=== PATIENT | female | born 1990 | race Hispanic/Latino ===

== ENCOUNTER 2018-06-13 12:20 | Emergency (ER) | payer OTHER, SELFPAY ==
[2018-06-13 12:34] VITALS: BP 126/83; PULSE 78; RESP 18; TEMP 36.9; O2SAT 100; BMI 23.8
[2018-06-13 12:37] VITALS: PULSE 78
--- NOTE | 2018-06-13 12:45 | DI.RAD.S_ITS ---
PROCEDURE: XR FINGER RT MIN 2V INDICATIONS: pain, popping TECHNIQUE: AP hand, 2 views of the 1st digit acquired. COMPARISON: None. FINDINGS: Bones: No fractures or dislocations. No suspicious bony lesions. Soft tissues: No suspicious soft tissue calcifications. IMPRESSION: 1. No fracture or dislocation. Dictated by: Eros Garibay M.D. on 06/13/2018 at 13:09 Approved by: Eros Garibay M.D. on 06/13/2018 at 13:12
--- NOTE | 2018-06-13 12:47 | ED.EXTPRO ---
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 She states she has never hurt her right thumb before. She is right-hand dominant. She was working, building furniture and felt a pop in her right thumb and subsequently complains of decreased range of motion. She had some swelling yesterday, so she put ice on it which improved the swelling. She has not taken any Tylenol or ibuprofen for the pain. she states this happened yesterday. She denies any numbness or tingling. She states pain with movement, especially with abduction and adduction. She states she can flex and extend her thumb. Denies any other injury. Related Data Home Medications Medication Instructions Recorded Confirmed bupropion HCl 150 mg PO QPM 06/13/18 06/13/18 insulin lispro [Humalog U-100 1 dose CONTINUOUS SUBCUTANEOUS 06/13/18 06/13/18 Insulin] INFUSION DAILY lamotrigine 25 mg PO QPM 06/13/18 06/13/18 Allergies Allergy/AdvReac Type Severity Reaction Status Date / Time No Known Drug Allergies Allergy Verified 06/13/18 12:37 Review of Systems <BILLIE Wan- - Last Filed: 06/13/18 15:02> Review of Systems GENERAL: Denies chills, fatigue, malaise, fever, sweats. HEENT: Denies sinus pain, ear pain, sore throat, difficulty swallowing, dizziness. RESPIRATORY: Denies dyspnea, cough, wheezing, hemoptysis, sputum. CARDIOVASCULAR: Denies chest pain, palpitations, orthopnea, edema, GASTROINTESTINAL: Denies nausea, vomiting, abdominal pain, diarrhea, constipation, melena. : Denies dysuria, frequency, incontinence, hematuria, urinary retention. MUSCULOSKELETAL: See HPI SKIN: See HPI NEUROLOGIC: Denies weakness, headache, numbness, change in speech, confusion, seizures, incoordination. PSYCHIATRIC: No concerning psychosocial issues. 12 point review of systems is negative except for those stated above PFSH <SAMMI Wan - Last Filed: 06/13/18 15:02> Social History Smoking Status: Never smoker Social History Smoking Status: Never smoker Exam <SAMMI Wan - Last Filed: 06/13/18 15:02> Narrative Exam Narrative: GENERAL: This is a well-nourished, well-developed patient, no acute distress HEAD: Atraumatic. Normocephalic. No temporal or scalp tenderness. EYES: Pupils equal round and reactive. Extraocular motions intact. No scleral icterus. No injection or drainage. ENT: Nose without bleeding, purulent drainage or septal hematoma. Throat without erythema, tonsillar hypertrophy or exudate. Uvula midline. Airway patent. NECK: Trachea midline. No JVD or lymphadenopathy. Supple, nontender, no meningeal signs. CARDIOVASCULAR: Regular rate and rhythm EXTREMITIES: Generalized pain to palpation right thumb. Patient is able to flex and extend right thumb. Reduced abduction and adduction noted. Capillary refill less than 2 seconds right thumb. Radial pulse intact right hand. BACK: Nontender without deformity or crepitance. No flank tenderness. NEURO: AOx3. SKIN: No erythema. Slight ecchymosis noted base of right 1st digit. Initial Vital Signs Initial Vital Signs: Vital Signs Temperature 98.5 F 06/13/18 12:34 Pulse Rate 78 06/13/18 12:34 Respiratory Rate 18 06/13/18 12:34 Blood Pressure 126/83 06/13/18 12:34 Pulse Oximetry 100 06/13/18 12:34 <Denia Richmond DO - Last Filed: 06/13/18 19:05> Initial Vital Signs Initial Vital Signs: Vital Signs Temperature 98.5 F 06/13/18 12:34 Pulse Rate 78 06/13/18 12:34 Respiratory Rate 18 06/13/18 12:34 Blood Pressure 126/83 06/13/18 12:34 Pulse Oximetry 100 06/13/18 12:34 Course <SAMMI Wan - Last Filed: 06/13/18 15:02> Orders Ordered: ED Orders 06/13/18 12:45 XR finger RT min 2V Stat Vital Signs - 8 hr 06/13/18 12:34 06/13/18 12:37 Temperature 98.5 F Pulse Rate 78 Pulse Rate [Right Radial] 78 Respiratory Rate 18 Blood Pressure 126/83 Pulse Oximetry 100 <Denia Richmond DO - Last Filed: 06/13/18 19:05> Orders Ordered: ED Orders 06/13/18 12:45 XR finger RT min 2V Stat Vital Signs - 8 hr 06/13/18 12:34 06/13/18 12:37 Temperature 98.5 F Pulse Rate 78 Pulse Rate [Right Radial] 78 Respiratory Rate 18 Blood Pressure 126/83 Pulse Oximetry 100 [facility] - Extremity (Nontraumatic) <SAMMI Wan - Last Filed: 06/13/18 15:02> Imaging Data Thumb x-ray: Radiologist's impression: [address] [address] XRay Report Signed Patient: Georgia Fernández TMR#: [id number] : 1990Acct:[id number] Age/Sex: 28 / FDate of Service: 06/13/18 Loc: ED Accession Number: [id number] Procedure: XR finger RT min 2V Ordering Provider: Denia Campbell PROCEDURE: XR FINGER RT MIN 2V INDICATIONS: pain, popping TECHNIQUE: AP hand, 2 views of the 1st digit acquired. COMPARISON: None. FINDINGS: Bones: No fractures or dislocations. No suspicious bony lesions. Soft tissues: No suspicious soft tissue calcifications. IMPRESSION: 1. No fracture or dislocation. Dictated by: Eros Garibay M.D. on 06/13/2018 at 13:09 Approved by: Eros Garibay M.D. on 06/13/2018 at 13:12 [facility] Narrative Medical decision making narrative: The patient is a 28-year-old female presents with a chief complaint of right thumb pain. She declined Tylenol and/or ibuprofen in the emergency department,. Her x-ray is negative for fracture. I encouraged her to follow up with her primary care provider for worsening or no improvement. Encouraged conservative measures like rest ice compression elevation as well as [id number] pain meds as needed and able. The patient declined bracing and/or Bruce wrap in the ER. Patient no questions or concerns and was neurovascularly intact throughout her stay in the ER. Discharge Plan Departure Patient Disposition: Home Clinical Impression: Pain of right thumb Discharge Date/Time: 06/13/18 13:46 Interventions: ED Discharge Assessment Last Done: 06/13/18 13:46 Instructions: How To Perform RICE (Rest, Ice, Compress, Elevate) Activity Restrictions/Additional Instructions: Your x-ray shows no fracture. I suggest rest ice compression elevation. Please follow up with primary care provider for new or worsening symptoms. Please take kgcm-pth-[id number] pain medications as needed and able. Please follow up with PCP as needed. Prescriptions: No Action lamotrigine 25 mg tablet 25 mg PO QPM RF: 0 Humalog U-100 Insulin 100 unit/mL solution 1 dose Continuous Subcutaneous Infusion DAILY RF: 0 bupropion HCl 150 mg tablet extended release 24 hr 150 mg PO QPM RF: 0 Referrals: [facility] [Provider Group] <Denia Richmond DO - Last Filed: 06/13/18 19:05> Cosign ED Attending Davidature Attestation: I was immediately available in the department for consultation. This documentation has been reviewed and I agree with assessment and plan. Supervised by Denia Richmond DO
--- NOTE | 2018-06-13 12:51 | ED_ITS ---
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 She states she has never hurt her right thumb before. She is right-hand dominant. She was working, building furniture and felt a pop in her right thumb and subsequently complains of decreased range of motion. She had some swelling yesterday, so she put ice on it which improved the swelling. She has not taken any Tylenol or ibuprofen for the pain. she states this happened yesterday. She denies any numbness or tingling. She states pain with movement, especially with abduction and adduction. She states she can flex and extend her thumb. Denies any other injury. Related Data Home Medications Medication Instructions Recorded Confirmed bupropion HCl 150 mg PO QPM 06/13/18 06/13/18 insulin lispro [Humalog U-100 1 dose CONTINUOUS SUBCUTANEOUS 06/13/18 06/13/18 Insulin] INFUSION DAILY lamotrigine 25 mg PO QPM 06/13/18 06/13/18 Allergies Allergy/AdvReac Type Severity Reaction Status Date / Time No Known Drug Allergies Allergy Verified 06/13/18 12:37 Review of Systems <BILLIE Wan- - Last Filed: 06/13/18 15:02> Review of Systems GENERAL: Denies chills, fatigue, malaise, fever, sweats. HEENT: Denies sinus pain, ear pain, sore throat, difficulty swallowing, dizziness. RESPIRATORY: Denies dyspnea, cough, wheezing, hemoptysis, sputum. CARDIOVASCULAR: Denies chest pain, palpitations, orthopnea, edema, GASTROINTESTINAL: Denies nausea, vomiting, abdominal pain, diarrhea, constipation, melena. : Denies dysuria, frequency, incontinence, hematuria, urinary retention. MUSCULOSKELETAL: See HPI SKIN: See HPI NEUROLOGIC: Denies weakness, headache, numbness, change in speech, confusion, seizures, incoordination. PSYCHIATRIC: No concerning psychosocial issues. 12 point review of systems is negative except for those stated above PFSH <SAMMI Wan - Last Filed: 06/13/18 15:02> Social History Smoking Status: Never smoker Social History Smoking Status: Never smoker Exam <SAMMI Wan - Last Filed: 06/13/18 15:02> Narrative Exam Narrative: GENERAL: This is a well-nourished, well-developed patient, no acute distress HEAD: Atraumatic. Normocephalic. No temporal or scalp tenderness. EYES: Pupils equal round and reactive. Extraocular motions intact. No scleral icterus. No injection or drainage. ENT: Nose without bleeding, purulent drainage or septal hematoma. Throat without erythema, tonsillar hypertrophy or exudate. Uvula midline. Airway patent. NECK: Trachea midline. No JVD or lymphadenopathy. Supple, nontender, no meningeal signs. CARDIOVASCULAR: Regular rate and rhythm EXTREMITIES: Generalized pain to palpation right thumb. Patient is able to flex and extend right thumb. Reduced abduction and adduction noted. Capillary refill less than 2 seconds right thumb. Radial pulse intact right hand. BACK: Nontender without deformity or crepitance. No flank tenderness. NEURO: AOx3. SKIN: No erythema. Slight ecchymosis noted base of right 1st digit. Initial Vital Signs Initial Vital Signs: Vital Signs Temperature 98.5 F 06/13/18 12:34 Pulse Rate 78 06/13/18 12:34 Respiratory Rate 18 06/13/18 12:34 Blood Pressure 126/83 06/13/18 12:34 Pulse Oximetry 100 06/13/18 12:34 <Denia Richmond DO - Last Filed: 06/13/18 19:05> Initial Vital Signs Initial Vital Signs: Vital Signs Temperature 98.5 F 06/13/18 12:34 Pulse Rate 78 06/13/18 12:34 Respiratory Rate 18 06/13/18 12:34 Blood Pressure 126/83 06/13/18 12:34 Pulse Oximetry 100 06/13/18 12:34 Course <SAMMI Wan - Last Filed: 06/13/18 15:02> Orders Ordered: ED Orders 06/13/18 12:45 XR finger RT min 2V Stat Vital Signs - 8 hr 06/13/18 12:34 06/13/18 12:37 Temperature 98.5 F Pulse Rate 78 Pulse Rate [Right Radial] 78 Respiratory Rate 18 Blood Pressure 126/83 Pulse Oximetry 100 <Denia Richmond DO - Last Filed: 06/13/18 19:05> Orders Ordered: ED Orders 06/13/18 12:45 XR finger RT min 2V Stat Vital Signs - 8 hr 06/13/18 12:34 06/13/18 12:37 Temperature 98.5 F Pulse Rate 78 Pulse Rate [Right Radial] 78 Respiratory Rate 18 Blood Pressure 126/83 Pulse Oximetry [address] [facility] - Extremity (Nontraumatic) <SAMMI Wan - Last Filed: 06/13/18 15:02> Imaging Data Thumb x-ray: Radiologist's impression: [address] [address] XRay Report Signed Patient: Georgia Fernández TMR#: [id number] : 1990Acct:[id number] Age/Sex: 28 / FDate of Service: 06/13/18 Loc: ED Accession Number: [id number] Procedure: XR finger RT min 2V Ordering Provider: Denia Campbell PROCEDURE: XR FINGER RT MIN 2V INDICATIONS: pain, popping TECHNIQUE: AP hand, 2 views of the 1st digit acquired. COMPARISON: None. FINDINGS: Bones: No fractures or dislocations. No suspicious bony lesions. Soft tissues: No suspicious soft tissue calcifications. IMPRESSION: 1. No fracture or dislocation. Dictated by: Eros Garibay M.D. on 06/13/2018 at 13:09 Approved by: Eros Garibay M.D. on 06/13/2018 at 13:[address] [facility] Narrative Medical decision making narrative: The patient is a 28-year-old female presents with a chief complaint of right thumb pain. She declined Tylenol and/or ibuprofen in the emergency department,. Her x-ray is negative for fracture. I encouraged her to follow up with her primary care provider for worsening or no improvement. Encouraged conservative measures like rest ice compression elevation as well as [id number]-igm-[id number] pain meds as needed and able. The patient declined bracing and/or Bruce wrap in the ER. Patient no questions or concerns and was neurovascularly intact throughout her stay in the ER. Discharge Plan Departure Patient Disposition: Home Clinical Impression: Pain of right thumb Discharge Date/Time: 06/13/18 13:46 Interventions: ED Discharge Assessment Last Done: 06/13/18 13:46 Instructions: How To Perform RICE (Rest, Ice, Compress, Elevate) Activity Restrictions/Additional Instructions: Your x-ray shows no fracture. I suggest rest ice compression elevation. Please follow up with primary care provider for new or worsening symptoms. Please take [id number]-[id number] pain medications as needed and able. Please follow up with PCP as needed. Prescriptions: No Action lamotrigine 25 mg tablet 25 mg PO QPM RF: 0 Humalog U-100 Insulin 100 unit/mL solution 1 dose Continuous Subcutaneous Infusion DAILY RF: 0 bupropion HCl 150 mg tablet extended release 24 hr 150 mg PO QPM RF: 0 Referrals: [facility] [Provider Group] <Denia Richmond DO - Last Filed: 06/13/18 19:05> Cosign ED Attending Davidature Attestation: I was immediately available in the department for consultation. This documentation has been reviewed and I agree with assessment and plan. Supervised by Denia Richmond DO
== END 2018-06-13 13:46 | disposition home or self-care (01) ==
PROVIDERS: Emergency Provider Nurse Practitioner Family
DX: M79.644 Pain in right finger(s) (principal)
CPT/HCPCS: 73140; 99282; 99283

== ENCOUNTER 2018-07-31 13:14 | Emergency (ER) | payer OTHER, SELFPAY ==
[2018-07-31 13:23] VITALS: BP 108/74; PULSE 80; RESP 18; TEMP 36.7; O2SAT 100
[2018-07-31 14:17] LABS: Bacteria Urine Many (>30); Culture Indicated Urine Specimen Cultured; RBC Urine 10-30/HPF (0-5/HPF); WBC Urine >100/HPF (0-5/HPF)
--- NOTE | 2018-07-31 15:30 | ED.FEMALEGU ---
HPI - Female Genitourinary <BILLIE Wan-BC - Last Filed: 07/31/18 16:59> General Chief complaint: Urogenital-Female Stated complaint: not feeling well, thinks UTI Time Seen by Provider: 07/31/18 15:16 Source: patient Mode of arrival: ambulatory Limitations: no limitations History of Present Illness HPI Narrative: The patient is a 28-year-old female nonsmoker with history of type 1 diabetes who presents with a chief complaint of ?I think I have a UTI.She complains of pain on the end of urination, bladder pressure and different smelling urine. She states her urine is cloudy. She denies any urgency or frequency. She states this is how her UTIs present. She denies any vaginal discharge. She denies any fevers abdominal pain flank pain nausea vomiting or diarrhea. Related Data Home Medications Medication Instructions Recorded Confirmed insulin lispro [Humalog U-100 1 dose CONTINUOUS SUBCUTANEOUS 06/13/18 07/31/18 Insulin] INFUSION DAILY lamotrigine 25 mg PO QPM 06/13/18 07/31/18 bupropion HCl 300 mg PO DAILY 07/31/18 07/31/18 famotidine 20 mg PO DAILY 07/31/18 07/31/18 fluticasone propionate 1 spray INTRANASAL DAILY 07/31/18 07/31/18 guanfacine 1 mg PO DAILY 07/31/18 07/31/18 loratadine 10 mg PO DAILY 07/31/18 07/31/18 Previous Rx's Medication Instructions Recorded sulfamethoxazole-trimethoprim 1 tab PO BID #10 tab 07/31/18 [Bactrim DS] Allergies Allergy/AdvReac Type Severity Reaction Status Date / Time No Known Drug Allergies Allergy Verified 06/13/18 12:37 Review of Systems <LANRE WanBC - Last Filed: 07/31/18 16:59> Review of Systems GENERAL: Denies chills, fatigue, malaise, fever, sweats. HEENT: Denies sinus pain, ear pain, sore throat, difficulty swallowing, dizziness. RESPIRATORY: Denies dyspnea, cough, wheezing, hemoptysis, sputum. CARDIOVASCULAR: Denies chest pain, palpitations, orthopnea, edema, GASTROINTESTINAL: Denies nausea, vomiting, abdominal pain, diarrhea, constipation, melena. : See HPI MUSCULOSKELETAL: denies weakness, joint pain, or bony pain SKIN: Denies rash, skin lesions, or other NEUROLOGIC: Denies weakness, headache, numbness, change in speech, confusion, seizures, incoordination. PSYCHIATRIC: No concerning psychosocial issues. 12 point review of systems is negative except for those stated above PFSH <SAMMI Wan - Last Filed: 07/31/18 16:59> Medical History (Updated 07/31/18 @ 16:58 by SAMMI Wan) Type 1 diabetes (Acute) Social History Smoking Status: Never smoker Social History Smoking Status: Never smoker Exam <SAMMI Wan - Last Filed: 07/31/18 16:59> Narrative Exam Narrative: GENERAL: This is a well-nourished, well-developed patient, in no acute distress HEAD: Atraumatic. Normocephalic. No temporal or scalp tenderness. EYES: Pupils equal round and reactive. Extraocular motions intact. No scleral icterus. No injection or drainage. ENT: Nose without bleeding, purulent drainage or septal hematoma. Throat without erythema, tonsillar hypertrophy or exudate. Uvula midline. Airway patent. NECK: Trachea midline. No JVD or lymphadenopathy. Supple, nontender, no meningeal signs. CARDIOVASCULAR: Regular rate and rhythm without murmurs, gallops, or rubs. RESPIRATORY: Clear to auscultation. Breath sounds equal bilaterally. No wheezes, rales, or rhonchi. No cough. No increased respiratory effort. No accessory muscle use. GASTROINTESTINAL: Abdomen soft, non-tender, nondistended. No hepato-splenomegaly, or palpable masses. No guarding. Active bowel sounds all 4 quadrants. EXTREMITIES: No clubbing, cyanosis, or edema. No joint tenderness, effusion, or edema noted. BACK: Nontender without deformity or crepitance. No flank tenderness. No CVA tenderness bilaterally. NEURO: AOx3. SKIN: No rash or erythema. Initial Vital Signs Initial Vital Signs: Vital Signs Temperature 98.1 F 07/31/18 13:23 Pulse Rate 80 07/31/18 13:23 Respiratory Rate 18 07/31/18 13:23 Blood Pressure 108/74 07/31/18 13:23 Pulse Oximetry 100 07/31/18 13:23 <Denia Richmond DO - Last Filed: 07/31/18 19:00> Initial Vital Signs Initial Vital Signs: Vital Signs Temperature 98.1 F 07/31/18 13:23 Pulse Rate 80 07/31/18 13:23 Respiratory Rate 18 07/31/18 13:23 Blood Pressure 108/74 07/31/18 13:23 Pulse Oximetry 100 07/31/18 13:23 Course <SAMMI Wan - Last Filed: 07/31/18 16:59> Orders Ordered: ED Orders 07/31/18 13:40 Urine Culture Stat Urine Microscopic Stat Vital Signs - 8 hr 07/31/18 13:23 07/31/18 15:42 Temperature 98.1 F Pulse Rate 80 62 Respiratory Rate 18 16 Blood Pressure 108/74 124/72 Pulse Oximetry 100 99 <Dneia Richmond DO - Last Filed: 07/31/18 19:00> Orders Ordered: ED Orders 07/31/18 13:40 Urine Culture Stat Urine Microscopic Stat Vital Signs - 8 hr 07/31/18 13:23 07/31/18 15:42 Temperature 98.1 F Pulse Rate 80 62 Respiratory Rate 18 16 Blood Pressure 108/74 124/72 Pulse Oximetry 100 99 MDM - Female Genitourinary <SAMMI Wan - Last Filed: 07/31/18 16:59> Lab Data Lab Results 07/31/18 Range/Units 13:40 Urine RBC 10-30/hpf H (0-5/HPF) Urine WBC >100/hpf H (0-5/HPF) Urine Bacteria Many (>30) H (None) Ur Culture Indicated? Specimen cultured Point of Care Testing Test Results Negative Urine Dip Bedside Urine Glucose 1000 mg/dl Bedside Urine Bilirubin - Negative Bedside Urine Ketone - Negative Urine Specific Tol[place] 1.025 Bedside Urine Occult Blood ++ Bedside Urine pH 6.0 Bedside Urine Protein ++ 100 Bedside Urine Urobilinogen - Negative Bedside Urine Nitrite + Positive Bedside Urine Leukocytes + 70 Esterase MDM Narrative Medical decision making narrative: The patient is a 28-year-old female who presents suspecting she has a urinary tract infection. She has no signs of systemic illness, is afebrile and has no CVA tenderness. Her UA is concerning for a UTI as she has nitrates and bacteria. I placed her on Bactrim. Her culture is pending at this time. I discussed going back to the ER for any acute concerns such as flank pain, inability keep down fluids etc. Encouraged PCP follow-up. Patient has no questions or concerns upon discharge. <Denia Richmond, - Last Filed: 07/31/18 19:00> Lab Data Lab Results 07/31/18 Range/Units 13:40 Urine RBC 10-30/hpf H (0-5/HPF) Urine WBC >100/hpf H (0-5/HPF) Urine Bacteria Many (>30) H (None) Ur Culture Indicated? Specimen cultured Point of Care Testing Test Results Negative Urine Dip Bedside Urine Glucose 1000 mg/dl Bedside Urine Bilirubin - Negative Bedside Urine Ketone - Negative Urine Specific [place] 1.025 Bedside Urine Occult Blood ++ Bedside Urine pH 6.0 Bedside Urine Protein ++ 100 Bedside Urine Urobilinogen - Negative Bedside Urine Nitrite + Positive Bedside Urine Leukocytes + 70 Esterase Discharge Plan Departure Patient Disposition: Home Clinical Impression: Urinary tract infection Qualifiers: Urinary tract infection type: site unspecified Hematuria presence: with hematuria Qualified Code(s): N39.0 - Urinary tract infection, site not specified Discharge Date/Time: 07/31/18 15:42 Interventions: ED Discharge Assessment Last Done: 07/31/18 15:42 Instructions: DI for Urinary Tract Infection (UTI) Activity Restrictions/Additional Instructions: Your prescription was sent to the [facility] on [facility]. I am starting you on an antibiotic for urinary tract infection. Please monitor for fever, inability keep down fluids or flank pain. These are signs of a worsening infection. Please follow up with primary care provider.. We are sending off a urine culture to make sure that your infection will be taking care of by this antibiotic. If it needs to be changed, you will receive a phone call. Prescriptions: New sulfamethoxazole-trimethoprim [Bactrim DS] 800-160 mg tablet 1 tab PO BID Qty: 10 RF: 0 No Action famotidine 20 mg tablet 20 mg PO DAILY RF: 0 guanfacine 1 mg tablet 1 mg PO DAILY RF: 0 fluticasone propionate 50 mcg/actuation spray,suspension 1 spray intranasal DAILY RF: 0 loratadine 10 mg tablet 10 mg PO DAILY RF: 0 bupropion HCl 300 mg tablet extended release 24 hr 300 mg PO DAILY RF: 0 lamotrigine 25 mg tablet 25 mg PO QPM RF: 0 insulin lispro [Humalog U-100 Insulin] 100 unit/mL solution 1 dose Continuous Subcutaneous Infusion DAILY RF: 0 <Denia Richmond DO - Last Filed: 07/31/18 19:00> Cosign ED Attending Cosignature Attestation: I was immediately available in the department for consultation. This documentation has been reviewed and I agree with assessment and plan. Supervised by Denia Richmond DO
[2018-07-31 15:42] VITALS: BP 124/72; PULSE 62; RESP 16; O2SAT 99
== END 2018-07-31 15:42 | disposition home or self-care (01) ==
PROVIDERS: Emergency Medicine; Emergency Provider Nurse Practitioner Family
DX: N39.0 Urinary tract infection, site not specified (principal)
CPT/HCPCS: 81003; 81015; 81025; 87077; 87086; 87186; 99282; 99283

== ENCOUNTER 2018-09-17 12:35 | Day surgery (SDC) | payer OTHER, SELFPAY ==
[2018-09-17] VITALS (7 sets, daily range): BP systolic 104–122; BP diastolic 74–83; PULSE 68–89; RESP 11–14; TEMP 36.6–36.8; O2SAT 98–100; BMI 22.4
--- NOTE | 2018-09-17 | PATH_ITS ---
[facility] Accession Number: [id number] . 01 Material submitted: . PART A: small bowel - SMALL BOWEL BIOPSY PART B: gastrointestinal site - GASTRIC BIOPSIES BODY AND ANTRUM . 01 Clinical history: . A: RULE OUT CELIAC B: RULE OUT H.PYLORI . 02 Diagnosis: A. Small Bowel, Biopsy: Duodenal mucosa with no diagnostic abnormality. Negative for active inflammation, features of sprue, dysplasia and malignancy. . B. Stomach, Body and Antrum, Biopsies: Helicobacter pylori gastritis. Negative for intestinal metaplasia. Negative for dysplasia and malignancy. [facility]/09/18/2018 . 02 Electronically signed: . Rosey Gupta MD, Pathologist NPI- [id number] . 01 Gross description: . Part A: SMALL BOWEL BIOPSY: Received in formalin are 4 fragment(s) of estrada, soft tissue measuring 0.1 x 0.1 x 0.1 cm to 0.3 x 0.2 x 0.2 cm which is entirely submitted and submitted entirely in 1 cassette(s) Part B: GASTRIC BIOPSIES BODY AND ANTRUM: Received in formalin are 4 fragment(s) of estrada, soft tissue measuring 0.1 x 0.1 x 0.1 cm to 0.4 x 0.2 x 0.2 cm which is bisected and submitted entirely in 1 cassette(s) /DMC /D[facility] . 02 Pathologist provided ICD-10: R10.9, B96.81 . 02 CPT . 112888, 985184 Performed at: 01 [facility] [address] [facility], [place], [place] [id number] MD Eros Hemphill MD Phone: [phone] Performed at: 02 [facility] [address] [place] [id number] MD Rosey Gupta MD Phone: [phone]
--- NOTE | 2018-09-17 07:59 | PM.HP.1 ---
History of Present Illness Date Patient Seen: 09/17/18 Chief complaint: [id number] Narrative: 28-year-old female seen at our office on 07/25/2018 due to dyspepsia and heartburn. She has a history of NSAID use and a trial of PPI was not completely effective in resolving symptoms. She is here for further evaluation of her upper GI tract. Patient History Medical History (Updated 08/15/18 @ 00:00 by ) Type 1 diabetes (Acute) Social History household members: spouse Smoking Status: Never smoker Family & Social History Tobacco & Substance use: Smoking Status Never smoker alcohol intake frequency holiday/special occasion Substance Use Type does not use Meds Home Medications Medication Instructions Recorded Confirmed Type insulin lispro [Humalog U-100 1 dose CONTINUOUS SUBCUTANEOUS 06/13/18 09/17/18 History Insulin] INFUSION DAILY bupropion HCl 300 mg PO DAILY 07/31/18 09/17/18 History famotidine 20 mg PO DAILY 07/31/18 09/17/18 History fluticasone propionate 1 spray INTRANASAL DAILY 07/31/18 09/17/18 History loratadine 10 mg PO DAILY 07/31/18 09/17/18 History sulfamethoxazole-trimethoprim 1 tab PO BID #10 tab 07/31/18 09/17/18 Rx [Bactrim DS] Allergies Allergy/AdvReac Type Severity Reaction Status Date / Time No Known Drug Allergies Allergy Verified 06/13/18 12:37 Exam Narrative Exam Narrative: General: Patient is well developed, not in apparent distress Cardiovascular: Regular rate and rhythm, no murmurs, rubs, or gallops; no evidence of edema; no palpable abdominal aortic aneurysm Gastrointestinal: Normoactive bowel sounds, soft, nontender, nondistended, no rebound tenderness, no hepatosplenomegaly, no evidence of hernia Assessment & Plan Assessment & Plan narrative: 28-year-old female with dyspepsia and heartburn incomplete response to PPI use who is here for evaluation of her upper GI tract. Regarding the procedure(s), the risks and potential complications, benefits, and alternatives (including not doing the procedure) were discussed with the patient. The risks include but are not limited to bleeding, splenic injury, infection, perforation which may require surgical intervention, missed lesions, and adverse reactions to sedative medicines. After a question and answer period, the patient agreed to proceed with the procedure(s) and gives informed consent.
[2018-09-17] MEDS: SODIUM CHLORIDE 0.9% 1,000 ML 70 ML IV (13:19)
--- NOTE | 2018-09-17 14:20 | PM.OP.ENDO ---
Operative Date/Time/Diagnoses Date of procedure: 09/17/18 Procedure Notes Procedure in detail: Surgeon: Emanuel Ross MD Procedure: Esophagogastroduodenoscopy with biopsy Preoperative diagnosis: Dyspepsia and heartburn not completely improved with PPI use Postoperative diagnosis: Normal EGD status post gastric and small-bowel biopsies Medications: Monitored anesthesia care per patient request due to anxiety Preanesthesia Assessment An H and P was performed/updated and the Px?s ASA class is 2. The procedure was discussed in detail with the patient. The potential risks and complications including infection, bleeding, missed lesions, perforation, need for surgery in case of perforation, prolonged hospital stay, and were explained. A brief question and answer period was allotted and once all questions were answered, informed consent was obtained. The patient was brought back to the procedure room and placed on standard monitoring. The patient?s vital signs were monitored continuously throughout the entire procedure. Prior to starting, a timeout was performed to confirm the patient?s identity, allergies, medications, and procedure. Procedure in detail The patient was placed in left lateral decubitus position and a bite block was inserted. The tip of the upper endoscope was placed into the mouth and advanced without difficulty under direct visualization into the esophagus. Esophagus: Normal Stomach: Normal; biopsies taken from the gastric body and antrum to rule out H pylori with minimal bleeding Duodenum: Normal; biopsies taken to rule out celiac disease with minimal bleeding The patient tolerated the procedure well and will be brought back to the recovery area to be discharged once criteria are met. The total physician intraservice time was 5 minutes. Complications There were no complications and estimated blood loss was minimal. Recommendations: Resume previous diet Continue outPx medications Follow up pathology results Office follow up with Dr. Oliva at the next available appointment. Please call our office at [phone] An emergency contact number was given to the patient for any complications related to the procedure
--- NOTE | 2018-09-17 15:11 | SUR.PHASEII ---
1500 late entry Pt. awake/drowsy. Spouse and children to bedside. Patient tearful, when inquired, she responded that she was sad. When asked why, she replied 'I'm worried for the future. All you nurses are so nice and the millennials aren't so nice.' Desires to rest prior to discharge.
--- NOTE | 2018-09-17 15:14 | SUR.PHASEII ---
1459 Blood glucose was 223 pre-op via finger stick. Currently 108 via patient's personal monitor (on her cell phone). Drinking hot chocolate (from PACU).
--- NOTE | 2018-09-17 15:19 | SUR.PHASEII ---
Patient sleeping. Glucose monitor - sugar 89. Her spouse requested grape juice to have on hand if she needs it. He desired that she not be woken at this time.
--- NOTE | 2018-09-17 15:29 | SUR.PHASEII ---
1525 glucose 84, patient awake, drinking juice. VSS, IV dc'd
== END 2018-09-17 15:37 | disposition home or self-care (01) ==
PROVIDERS: Visit Provider Internal Medicine Gastroenterology
PROC: 0DJ08ZZ Inspection of Upper Intestinal Tract, Via Natural or Artificial Opening Endoscopic (ICD-10-PCS; CPT 43235; principal; 2018-09-17 14:30)
DX: K30 Functional dyspepsia (principal); B96.81 Helicobacter pylori [H. pylori] as the cause of diseases classified elsewhere; E11.9 Type 2 diabetes mellitus without complications; Z79.4 Long term (current) use of insulin
CPT/HCPCS: 43239; 88305; J2250; J2704; J3010

== ENCOUNTER 2018-11-07 19:40 | Emergency (ER) | payer OTHER, SELFPAY ==
[2018-11-07 19:51] VITALS: BP 124/83; PULSE 91; RESP 18; TEMP 37; O2SAT 100; BMI 22.8
--- NOTE | 2018-11-07 20:16 | ED_ITS ---
HPI - General Adult General Chief complaint: Diabetic Problem Stated complaint: BLOOD SUGAR IS HIGH NO INSULIN Time Seen by Provider: 11/07/18 19:45 Source: patient Mode of arrival: Ambulatory Limitations: no limitations History of Present Illness HPI narrative: 28-year-old female nonsmoker with type 1 diabetes and insulin pump presents with a chief complaint of hyperglycemia worsening over the course of the day and some generalized fatigue and nausea. 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 Over the course of the day she has been trying to ration it but had to turn it off and as a result has found her blood sugar climbing slightly and she feels poorly. She has had nausea but no vomiting. She denies any fever or chills. She was feeling fine well until earlier today. Onset (ago): hour(s) Severity: moderate Associated symptoms: nausea/vomiting Treatments prior to arrival: none Related Data Home Medications Medication Instructions Recorded Confirmed insulin lispro 1 dose CONTINUOUS SUBCUTANEOUS 06/13/18 09/17/18 INFUSION DAILY bupropion HCl 300 mg PO DAILY 07/31/18 09/17/18 famotidine 20 mg PO DAILY 07/31/18 09/17/18 fluticasone propionate 1 spray INTRANASAL DAILY 07/31/18 09/17/18 loratadine 10 mg PO DAILY 07/31/18 09/17/18 Previous Rx's Medication Instructions Recorded sulfamethoxazole-trimethoprim 1 tab PO BID #10 tab 07/31/18 [Bactrim DS] insulin lispro [Humalog U-100 See Rx Instructions .ROUTE 11/08/18 Insulin] .COMPLEX #10 ml Allergies Allergy/AdvReac Type Severity Reaction Status Date / Time No Known Drug Allergies Allergy Verified 11/07/18 19:57 Review of Systems Constitutional Constitutional: Denies chills, Reports fatigue, Denies fever(s), Denies frequent falls, Denies lethargy and Reports weakness Eyes Eyes: Denies change in vision, Denies eye discharge, Denies irritation and Denies loss of vision ENT Ears, Nose, Mouth, and Throat: Denies change in voice, Denies dizziness, Denies neck pain, Denies sore throat and Denies throat swelling Cardiovascular Cardiovascular: Denies chest pain, Denies irregular heart rhythm, Denies lightheadedness, Denies palpitations, Denies dyspnea, Denies dyspnea on exertion and Denies orthopnea Respiratory Respiratory: Denies cough, Denies dyspnea, Denies dyspnea on exertion and Denies wheezing Gastrointestinal Gastrointestinal: Denies abdominal pain, Denies change in bowel habits, Denies diarrhea, Reports nausea and Denies vomiting Genitourinary Genitourinary: Denies hematuria, Denies flank pain, Denies urinary incontinence and Denies urinary urgency Musculoskeletal Musculoskeletal: Denies back pain, Denies muscle weakness, Denies neck pain, Denies numbness and Denies tingling Integumentary/Breasts Skin/Breast: Denies pruritus, Denies erythema, Denies rash and Denies wounds Neurologic Neurologic: Denies behavioral changes, Denies confusion, Denies dizziness, Denies frequent falls, Denies loss of vision, Denies numbness, Denies tingling and Reports weakness Psychiatric Psychiatric: Denies anxiety, Denies behavioral changes, Denies confusion, Denies depression, Denies homicidal ideation and Denies suicidal ideation Endocrine Endocrine: Reports fatigue, Denies flushing and Denies palpitations Hematologic/Lymphatic Hematologic/Lymphatic: Denies easy bruising Allergic/Immunologic Allergic/Immunologic: Denies urticaria, Denies throat swelling and Denies wheezing [facility] Medical History Type 1 diabetes (Acute) Social History household members: spouse Smoking Status: Never smoker Social History household members: spouse Smoking Status: Never smoker Exam Narrative Exam Narrative: GENERAL: [28] year old patient appears stated age. Well- nourished, well-developed patient, in mild distress. HEAD: Atraumatic. Normocephalic. EYES: Pupils equal round and reactive. Extraocular motions intact. No scleral icterus. No injection or drainage. ENT: Nose without bleeding, purulent drainage. Throat without erythema, tonsillar hypertrophy or exudate. Airway patent. NECK: Trachea midline. Non tender CARDIOVASCULAR: Regular rate and rhythm without murmurs, gallops, or rubs. RESPIRATORY: Clear to auscultation. Breath sounds equal bilaterally. No wheezes, rales, or rhonchi. GASTROINTESTINAL: Abdomen soft, non-tender, nondistended. EXTREMITIES: No edema or joint tenderness. BACK: Nontender without deformity or crepitance. No flank tenderness. NEURO: AOx3. SKIN: No rash or erythema of visible areas Initial Vital Signs Initial Vital Signs: Vital Signs Temperature 98.6 F 11/07/18 19:51 Pulse Rate 91 H 11/07/18 19:51 Respiratory Rate 18 11/07/18 19:51 Blood Pressure 124/83 11/07/18 19:51 Pulse Oximetry 100 11/07/18 19:51 Course Course Course Narrative: Patient feels much better after IV fluids. She did have a brief dip of her blood sugar after this subq was administered Orders Ordered: ED Orders 11/07/18 20:16 XR chest 2V Stat Venous Blood Gas Stat 11/07/18 20:28 Venous Blood Gas Stat 11/07/18 20:35 Complete Blood Count AUTO DIFF Stat Comprehensive Metabolic Panel Stat Lactate (Lactic Acid) Stat 11/07/18 22:55 Basic Metabolic Panel Stat Discontinued Medications Sodium Chloride (Normal Saline 0.9%) 1,000 mls @ 1,000 mls/hr IV BOLUS ONE Stop: 11/07/18 21:15 Last Infusion: 11/07/18 21:50 Dose: 0 mls/hr Documented by: Admin: 11/07/18 21:02 Dose: 1,000 mls/hr Documented by: MIKEY Sodium Chloride (Normal Saline 0.9%) 1,000 mls @ 1,000 mls/hr IV BOLUS ONE Stop: 11/07/18 22:29 Last Infusion: 11/07/18 23:15 Dose: 0 mls/hr Documented by: Admin: 11/07/18 21:49 Dose: 1,000 mls/hr Documented by: MIKEY Insulin Human Regular (Humulin R) 5 unit SUBCUT NOW ONE Stop: 11/07/18 21:31 Last Admin: 11/07/18 21:49 Dose: 5 unit Documented by: MIKEY Cosigned by: PASCALE Vital Signs Vital signs: Vital Signs - 8 hr 11/07/18 20:30 11/07/18 21:00 11/07/18 21:42 Pulse Rate 80 79 79 Respiratory Rate 23 18 18 Blood Pressure Blood Pressure [Right Arm] 110/47 L 108/54 L 112/82 Pulse Oximetry 99 99 99 11/07/18 22:27 11/07/18 23:30 11/08/18 01:37 Pulse Rate 83 91 H 86 Respiratory Rate 18 17 18 Blood Pressure 122/81 Blood Pressure [Right Arm] 120/81 112/73 Pulse Oximetry 100 100 100 Medical Decision Making Lab Data Result diagrams: 11/07/18 20:35 11/07/18 22:55 Labs: Lab Results 11/07/18 11/07/18 11/07/18 Range/Units 20:28 20:35 20:35 WBC 9.0 (4.5-11.0) X10^3/uL RBC 4.40 (4.0-5.2) X10^6/uL Hgb 13.3 (12.0-16.0) g/dL Hct 39.9 (36-46) % MCV 90.6 (80-100) fL MCH 30.3 (26-34) PG MCHC 33.4 (30-36) % RDW 12.4 (11.6-14.8) % Plt Count 294 (150-400) X10^3/uL Neut % (Auto) 65.7 (50-75) % Lymph % (Auto) 26.0 (25-40) % Sanborn % (Auto) 5.5 (3-14) % Eos % (Auto) 2.4 (2-4) % Baso % (Auto) 0.4 (0-2) % Neut # (Auto) 5900 (9083-5786) /uL Lymph # (Auto) 2300 (6485-3611) /uL Sanborn # (Auto) 500 (0-900) /uL Eos # (Auto) 200 (0-450) /uL Baso # (Auto) 0 (0-100) /uL VBG pH 7.26 L (7.33-7.43) VBG pCO2 48.4 (45-50) mmHg VBG pO2 16 L (35-45) mmHg VBG HCO3 22 L (23-28) mmol/L VBG Total CO2 23 L (24-29) mmol/L VBG O2 Saturation 16 L (70-75) % VBG Base Excess -5.0 L (0-4) mmol/L Sodium 139 (137-145) mmol/L Potassium 3.7 (3.4-5.1) mmol/L Chloride 104 (98-107) mmol/L Carbon Dioxide 24 (22-32) mmol/L BUN 11 (7-17) mg/dL Creatinine 0.60 (0.52-1.04) mg/dL Estimated GFR > 60.0 (>60) mL/min BUN/Creatinine Ratio 18.3 (6-22) Glucose 203 H (70-100) mg/dL Lactate (0.7-2.1) mmol/L Calcium 9.3 (8.4-10.2) mg/dL Total Bilirubin 0.9 (0.2-1.3) mg/dL AST 19 (14-36) IU/L ALT 13 (9-52) IU/L Alkaline Phosphatase 81 (38-126) U/L Total Protein 7.6 (6.3-8.2) g/dL Albumin 4.4 (3.5-5.0) g/dL Globulin 3.2 (1.7-4.1) g/dL Albumin/Globulin Ratio 1.4 (1.0-2.8) 11/07/18 11/07/18 11/07/18 Range/Units 20:35 22:55 22:55 WBC (4.5-11.0) X10^3/uL RBC (4.0-5.2) X10^6/uL Hgb (12.0-16.0) g/dL Hct (36-46) % MCV (80-100) fL MCH (26-34) PG MCHC (30-36) % RDW (11.6-14.8) % Plt Count (150-400) X10^3/uL Neut % (Auto) (50-75) % Lymph % (Auto) (25-40) % Sanborn % (Auto) (3-14) % Eos % (Auto) (2-4) % Baso % (Auto) (0-2) % Neut # (Auto) (9736-4022) /uL Lymph # (Auto) (7179-1208) /uL Sanborn # (Auto) (0-900) /uL Eos # (Auto) (0-450) /uL Baso # (Auto) (0-100) /uL VBG pH (7.33-7.43) VBG pCO2 (45-50) mmHg VBG pO2 (35-45) mmHg VBG HCO3 (23-28) mmol/L VBG Total CO2 (24-29) mmol/L VBG O2 Saturation (70-75) % VBG Base Excess (0-4) mmol/L Sodium 139 (137-145) mmol/L Potassium 3.9 (3.4-5.1) mmol/L Chloride 110 H (98-107) mmol/L Carbon Dioxide 23 (22-32) mmol/L BUN 10 (7-17) mg/dL Creatinine 0.60 (0.52-1.04) mg/dL Estimated GFR > 60.0 (>60) mL/min BUN/Creatinine Ratio 16.7 (6-22) Glucose 114 H (70-100) mg/dL Lactate 2.8 H 1.0 (0.7-2.1) mmol/L Calcium 8.0 L (8.4-10.2) mg/dL Total Bilirubin (0.2-1.3) mg/dL AST (14-36) IU/L ALT (9-52) IU/L Alkaline Phosphatase (38-126) U/L Total Protein (6.3-8.2) g/dL Albumin (3.5-5.0) g/dL Globulin (1.7-4.1) g/dL Albumin/Globulin Ratio (1.0-2.8) Point of Care Testing Test Results Negative Glucose POC 61 Urine Dip Bedside Urine Glucose 1000 mg/dl Bedside Urine Bilirubin - Negative Bedside Urine Ketone - Negative Urine Specific V[place]on 1.020 Bedside Urine Occult Blood - Negative Bedside Urine pH 6.0 Bedside Urine Protein - Negative Bedside Urine Urobilinogen - Negative Bedside Urine Nitrite - Negative Bedside Urine Leukocytes - Negative Esterase Point of care testing: Point of Care Testing Test Results Negative Glucose POC 61 Urine Dip Bedside Urine Glucose 1000 mg/dl Bedside Urine Bilirubin - Negative Bedside Urine Ketone - Negative Urine Specific [place] 1.020 Bedside Urine Occult Blood - Negative Bedside Urine pH 6.0 Bedside Urine Protein - Negative Bedside Urine Urobilinogen - Negative Bedside Urine Nitrite - Negative Bedside Urine Leukocytes - Negative Esterase [facility] Narrative Medical decision making narrative: 20-year-old female type 1 diabetic running out of insulin presents initially acidotic on a VBG with an elevated lactate. She is given a few L of fluid and electrolytes a recheck. At no point he she gap. Her hemodynamics remained stable, she feels much better. She is given insulin subcu in the department and has 12 units left in her pump to get her through the night. Prescription administered and written for her Humalog. Return precautions given, questions answered to her apparent satisfaction Discharge Plan Departure Patient Disposition: Home Clinical Impression: Diabetes mellitus Qualifiers: Diabetes mellitus type: type 1 Diabetes mellitus complication status: with h yperglycemia Qualified Code(s): E10.65 - Type 1 diabetes mellitus with hyperg lycemia Discharge Date/Time: 11/08/18 01:37 Instructions: DI for Diabetes Type 1 -- Adult Activity Restrictions/Additional Instructions: *You have been diagnosed with [hyperglycemia secondary to lack of access to insulin] *What to do: *Take medications as directed *Follow up with your primary care provider in 2-3 days, call for an appointment. Let them know you were seen in the Emergency Department and that we ask that you be seen in follow up *Return to ER if you should have any new, worsening or concerning symptoms Prescriptions: New insulin lispro [Humalog U-100 Insulin] 100 unit/mL solution See Rx Instructions .ROUTE .COMPLEX Qty: 10 RF: 0 No Action sulfamethoxazole-trimethoprim [Bactrim DS] 800-160 mg tablet 1 tab PO BID Qty: 10 RF: 0 famotidine 20 mg tablet 20 mg PO DAILY RF: 0 fluticasone propionate 50 mcg/actuation spray,suspension 1 spray intranasal DAILY RF: 0 loratadine 10 mg tablet 10 mg PO DAILY RF: 0 bupropion HCl 300 mg tablet extended release 24 hr 300 mg PO DAILY RF: 0 insulin lispro 100 unit/mL solution 1 dose Continuous Subcutaneous Infusion DAILY RF: 0
--- NOTE | 2018-11-07 20:16 | DI.RAD.S_ITS ---
PROCEDURE: XR CHEST 2V INDICATIONS: chest pain TECHNIQUE: 2 views of the chest were acquired. COMPARISON: None. FINDINGS: Surgical changes and devices: None. Lungs and pleura: Lungs are clear. No pleural effusions or pneumothorax. Mediastinum: Mediastinal contours are normal. Heart size is normal. Bones and chest wall: No suspicious bony abnormalities. Soft tissues appear unremarkable. IMPRESSION: No acute process. Dictated by: Anuja Hui M.D. on 11/07/2018 at 20:51 Approved by: Anuja Hui M.D. on 11/07/2018 at 20:51
[2018-11-07 20:30] VITALS: BP 110/47; PULSE 80; RESP 23; O2SAT 99
[2018-11-07 20:44] LABS: HCO3 VBG 22 mmol/L (23-28); Oxygen Saturation VBG 16 % (70-75); PCO2 VBG 48.4 mmHg (45-50); PO2 VBG 16 mmHg (35-45); Total CO2 VBG 23 mmol/L (24-29); pH VBG 7.26 (7.33-7.43)
[2018-11-07 20:54] LABS: Add Manual Diff / Slide Review NO; Basophils Absolute Auto 0 /uL (0-100); Basophils Percent Auto 0.4 % (0-2); Eosinophils Absolute Auto 200 /uL (0-450); Eosinophils Percent Auto 2.4 % (2-4); Hematocrit 39.9 % (36-46); Hemoglobin 13.3 g/dL (12.0-16.0); Lymphocytes Absolute Auto 2300 /uL (1100-4500); Mean Corpuscular HGB Conc 33.4 % (30-36); Mean Corpuscular Hemoglobin 30.3 PG (26-34); Mean Corpuscular Volume 90.6 fL (80-100); Monocytes Absolute Auto 500 /uL (0-900); Monocytes Percent Auto 5.5 % (3-14); Neutrophils Absolute Auto 5900 /uL (1500-7000); Neutrophils Percent Auto 65.7 % (50-75); Platelet Count 294 X10^3/uL (150-400); Red Cell Distribution Width 12.4 % (11.6-14.8)
[2018-11-07 21:00] VITALS: BP 108/54; PULSE 79; RESP 18; O2SAT 99
[2018-11-07] MEDS: SODIUM CHLORIDE 0.9% 1,000 ML 1000 ML IV ×2 (21:02→21:49)
[2018-11-07 21:05] LABS: Alanine Aminotransferase 13 IU/L (9-52); Albumin 4.4 g/dL (3.5-5.0); Albumin Globulin Ratio 1.4 (1.0-2.8); Alkaline Phosphatase 81 U/L (38-126); Aspartate Aminotransferase 19 IU/L (14-36); BUN Creatinine Ratio 18.3 (6-22); Bilirubin Total 0.9 mg/dL (0.2-1.3); Blood Urea Nitrogen 11 mg/dL (7-17); Calcium 9.3 mg/dL (8.4-10.2); Carbon Dioxide 24 mmol/L (22-32); Chloride 104 mmol/L (98-107); Estimated Glomerular Filt Rate > 60.0 mL/min (>60); Globulin 3.2 g/dL (1.7-4.1); Glucose 203 mg/dL (70-100); HEMOLYSIS < 15 (0-50); Lactate (Lactic Acid) 2.8 mmol/L (0.7-2.1); Potassium 3.7 mmol/L (3.4-5.1); Sodium 139 mmol/L (137-145); Total Protein 7.6 g/dL (6.3-8.2)
[2018-11-07 21:42] VITALS: BP 112/82; PULSE 79; RESP 18; O2SAT 99
[2018-11-07] MEDS: INSULIN REGULAR 100 UNIT/ML 3 ML VIAL SUBCUT (21:49)
[2018-11-07 22:27] VITALS: BP 120/81; PULSE 83; RESP 18; O2SAT 100
[2018-11-07 22:43] LABS: Reflexed Lactate in 2 Hours Y
[2018-11-07 23:15] LABS: BUN Creatinine Ratio 16.7 (6-22); Blood Urea Nitrogen 10 mg/dL (7-17); Carbon Dioxide 23 mmol/L (22-32); Chloride 110 mmol/L (98-107); Estimated Glomerular Filt Rate > 60.0 mL/min (>60); Glucose 114 mg/dL (70-100); HEMOLYSIS < 15 (0-50); Potassium 3.9 mmol/L (3.4-5.1); Sodium 139 mmol/L (137-145)
[2018-11-07 23:30] VITALS: BP 112/73; PULSE 91; RESP 17; O2SAT 100
[2018-11-08 01:37] VITALS: BP 122/81; PULSE 86; RESP 18; O2SAT 100
== END 2018-11-08 01:37 | disposition home or self-care (01) ==
PROVIDERS: Emergency Provider Emergency Medicine
DX: E10.65 Type 1 diabetes mellitus with hyperglycemia (principal); R07.9 Chest pain, unspecified
CPT/HCPCS: 36415; 71046; 80048; 80053; 81003; 81025; 82805; 82962; 83605; 85025; 93005; 93010; 96360; 96361; 96372; 99283; 99285

== ENCOUNTER 2019-02-01 02:32 | Emergency (ER) | payer OTHER, SELFPAY ==
[2019-02-01 02:40] VITALS: BP 123/88; PULSE 91; RESP 16; TEMP 36.2; O2SAT 98
--- NOTE | 2019-02-01 03:12 | ED.CHESTPAIN ---
HPI - Chest Pain General Chief Complaint: Chest Pain Stated Complaint: pain in throat chest headache has dmII Time Seen by Provider: 02/01/19 02:48 Source: patient Mode of arrival: Ambulatory Limitations: no limitations History of Present Illness HPI narrative: 28-year-old female. Is an insulin-dependent diabetic. Here for evaluation of symptoms that occurred several hours ago. She states she had an onset of pain in her chest. States that it started in her lower epigastric region and then worked its way up to her throat. Unsure exactly how long the symptoms lasted. States it is very sharp pain. It has resolved. Several hours later she had an episode where she had a metallic taste in her mouth. That symptoms also resolved. She has never had anything like this in the past. Has not tried anything for symptoms prior to arrival Related Data Home Medications Medication Instructions Recorded Confirmed insulin lispro 1 dose CONTINUOUS SUBCUTANEOUS 06/13/18 09/17/18 INFUSION DAILY bupropion HCl 300 mg PO DAILY 07/31/18 09/17/18 famotidine 20 mg PO DAILY 07/31/18 09/17/18 fluticasone propionate 1 spray INTRANASAL DAILY 07/31/18 09/17/18 loratadine 10 mg PO DAILY 07/31/18 09/17/18 Previous Rx's Medication Instructions Recorded sulfamethoxazole-trimethoprim 1 tab PO BID #10 tab 07/31/18 [Bactrim DS] insulin lispro [Humalog U-100 See Rx Instructions .ROUTE 11/08/18 Insulin] .COMPLEX #10 ml Allergies Allergy/AdvReac Type Severity Reaction Status Date / Time No Known Drug Allergies Allergy Verified 11/07/18 19:57 Review of Systems Constitutional Constitutional: Denies fever(s) ENT Comments: Metallic taste in her mouth Cardiovascular Cardiovascular: Reports chest pain, Denies rapid heart rate, Denies palpitations and Denies dyspnea Respiratory Respiratory: Denies cough and Denies dyspnea Gastrointestinal Gastrointestinal: Denies abdominal pain, Denies nausea and Denies vomiting Musculoskeletal Musculoskeletal: Denies myalgias and Denies arthralgias Integumentary/Breasts Skin/Breast: Denies rash Endocrine Endocrine: Denies palpitations Hematologic/Lymphatic Hematologic/Lymphatic: Denies easy bleeding and Denies easy bruising Patient History Medical History Type 1 diabetes (Acute) Social History household members: spouse Smoking Status: Never smoker Smoking Status: Never smoker alcohol intake frequency: holidays/special occasions only Substance Use Type: does not use Exam Initial Vital Signs Initial Vital Signs: Vital Signs Temperature 97.2 F L 02/01/19 02:40 Pulse Rate 91 H 02/01/19 02:40 Respiratory Rate 16 02/01/19 02:40 Blood Pressure 123/88 02/01/19 02:40 Pulse Oximetry 98 02/01/19 02:40 Const General: cooperative, healthy appearing, comfortable and well developed Orientation: alert, awake and oriented x3 HENMT Head: normal to inspection and normocephalic Ears: TM's normal bilaterally Face and sinus: normal facial exam Throat: posterior oropharynx normal Chest Chest: No crepitus and No tenderness Resp Effort & Inspection: normal respiratory effort Auscultation: clear to auscultation bilaterally Cardio Rate: regular rate Rhythm: regular rhythm Skin Lesions: no lesions Rashes: no rashes Neuro General: alert and awake Cognition: normal cognition Speech: speech normal Extrem General: normal to inspection and capillary refill normal Psych Appearance: grossly normal and well kempt Course Orders Ordered: ED Orders 02/01/19 03:19 XR chest 1V Stat 02/01/19 03:20 EKG-12 Lead Stat Vital Signs Vital signs: Vital Signs - 8 hr 02/01/19 02:40 02/01/19 03:20 02/01/19 04:20 Temperature 97.2 F L 97.2 F L 97.0 F L Pulse Rate 91 H 91 H 85 Respiratory Rate 16 16 16 Blood Pressure 123/88 117/79 Blood Pressure [Left Arm] 123/88 Pulse Oximetry 98 98 100 MDM - Chest Pain Imaging Data Chest x-ray: Attestation: I personally reviewed and interpreted this imaging study as follows: My impression: No pneumonia, no pneumothorax ECG Data Attestation: I personally reviewed and interpreted this ECG as follows: Prior ECG tracings: not available for review Interpretation: Sinus rhythm Ventricular rate is 77 Normal axis Normal QRS Normal QTC No ST T wave changes MDM Narrative Medical decision making narrative: Patient is asymptomatic. Exam is normal. Chest x-ray and EKG unremarkable. Low suspicion for ACS. Could potentially been esophageal spasm. Discuss this with the patient. Discussed return precautions and follow-up instructions. She expressed understanding and agreement with plan. Discharge Plan Departure Patient Disposition: Home Clinical Impression: Atypical chest pain Discharge Date/Time: 02/01/19 04:22 Instructions: DI for Atypical Chest Pain Activity Restrictions/Additional Instructions: Recommend that you try 1 of the liquid [id number] antacids such as Mylanta or Maalox. This may help with the symptoms that you describe. If your symptoms do not improve or they return or worsen free a problem swallowing or breathing please return to the emergency department for further evaluation Prescriptions: No Action sulfamethoxazole-trimethoprim [Bactrim DS] 800-160 mg tablet 1 tab PO BID Qty: 10 RF: 0 famotidine 20 mg tablet 20 mg PO DAILY RF: 0 fluticasone propionate 50 mcg/actuation spray,suspension 1 spray intranasal DAILY RF: 0 loratadine 10 mg tablet 10 mg PO DAILY RF: 0 bupropion HCl 300 mg tablet extended release 24 hr 300 mg PO DAILY RF: 0 insulin lispro [Humalog U-100 Insulin] 100 unit/mL solution See Rx Instructions .ROUTE .COMPLEX Qty: 10 RF: 0 insulin lispro 100 unit/mL solution 1 dose Continuous Subcutaneous Infusion DAILY RF: 0
--- NOTE | 2019-02-01 03:19 | DI.RAD.S_ITS ---
PROCEDURE: XR CHEST 1V INDICATIONS: Chest pain TECHNIQUE: One view of the chest was acquired. COMPARISON: [facility], CR, XR CHEST 2V, 11/07/2018, 20:27. FINDINGS: Surgical changes and devices: None. Lungs and pleura: Lungs are clear. No pleural effusions or pneumothorax. Mediastinum: Mediastinal contours appear normal. Heart size is normal. Bones and chest wall: No suspicious bony lesions. Overlying soft tissues appear unremarkable. IMPRESSION: No acute cardiopulmonary findings. Dictated by: Homa Crowder M.D. on 02/01/2019 at 7:13 Approved by: Homa Crowder M.D. on 02/01/2019 at 7:13
[2019-02-01 03:20] VITALS: BP 123/88; PULSE 91; RESP 16; TEMP 36.2; O2SAT 98
[2019-02-01 04:20] VITALS: BP 117/79; PULSE 85; RESP 16; TEMP 36.1; O2SAT 100
== END 2019-02-01 04:22 | disposition home or self-care (01) ==
LOC: ED 03:20
PROVIDERS: Emergency Provider Emergency Medicine
DX: R07.89 Other chest pain (principal)
CPT/HCPCS: 71045; 93005; 99281; 99284